=== PATIENT | male | born 1980 | race Caucasian/White ===

== ENCOUNTER 2019-03-13 21:25 | Emergency (ER) | payer OTHER ==
[2019-03-13 21:44] VITALS: BP 138/85
[2019-03-13] MEDS ORDERED: Cephalexin CAP* 500 MG PO ONE (22:24)
--- NOTE | 2019-03-13 22:32 | ED ---
Skin Complaint - HPI Summary HPI Summary: pt complains of not feeling well. he states he had diarrhea after he ate dinner at 8pm. no one else got sick. he also noted an area of redness to his left lateral axilla. it is tender to palpation. he did state that he had a low grade fever at approx 5pm but he did not take any meds for this. - History of Current Complaint Chief Complaint: UCGeneralIllness Stated Complaint: TICK BITE Hx Obtained From: Patient Onset/Duration: Started Hours Ago Pain Intensity: 7 - Allergy/Home Medications Allergies/Adverse Reactions: Allergies Allergy/AdvReac Type Severity Reaction Status Date / Time budesonide Allergy Swelling Verified 03/13/19 21:45 [From Rhinocort Allergy] Of Face,Lips,& Throat erythromycin base Allergy Unknown Verified 03/13/19 21:45 Reaction Details PMH/Surg Hx/FS Hx/Imm Hx Previously Healthy: Yes Endocrine/Hematology History: Denies: Hx Anticoagulant Therapy, Hx Diabetes, Hx Thyroid Disease Cardiovascular History: Denies: Hx Congestive Heart Failure, Hx Deep Vein Thrombosis, Hx Hypertension , Hx Myocardial Infarction, Hx Pacemaker/ICD Respiratory History: Denies: Hx Asthma, Hx Chronic Obstructive Pulmonary Disease (COPD), Hx Lung Cancer, Hx Pneumonia, Hx Pulmonary Embolism GI History: Denies: Hx Gall Bladder Disease, Hx Gastrointestinal Bleed, Hx Ulcer, Hx Urosepsis History: Denies: Hx Kidney Stones, Hx Renal Disease Neurological History: Denies: Hx Dementia, Hx Migraine, Hx Seizures, Hx Transient Ischemic Attacks (TIA) Psychiatric History: Denies: Hx Anxiety, Hx Depression, Hx Schizophrenia, Hx Bipolar Disorder - Surgical History Surgery Procedure, Year, and Place: tubes in ears. polyps in nose Infectious Disease History: No Infectious Disease History: Denies: Hx Hepatitis, Hx Human Immunodeficiency Virus (HIV), Traveled Outside the [place] in Last 30 Days - Family History Known Family History: Positive: Cardiac Disease, Hypertension - Social History Alcohol Use: Rare Substance Use Type: Reports: None Smoking Status (MU): Never Smoked Tobacco Review of Systems Positive: Fever, Fatigue Eyes: Negative ENT: Negative Cardiovascular: Negative Respiratory: Negative Gastrointestinal: Negative Positive: Diarrhea. Negative: Abdominal Pain, Vomiting, Nausea Negative: burning, dysuria, hematuria Positive: Myalgia Positive: Rash. Negative: Bruising Negative: Headache Psychological: Normal All Other Systems Reviewed And Are Negative: No Physical Exam Triage Information Reviewed: Yes Vital Signs On Initial Exam: Initial Vitals Temp Pulse Resp BP Pulse Ox 100.7 F 109 18 138/85 97 03/13/19 21:36 03/13/19 21:36 03/13/19 21:36 03/13/19 21:36 03/13/19 21:36 Vital Signs Reviewed: Yes Appearance: Positive: Well-Appearing, No Pain Distress, Well-Nourished Skin: Positive: Warm, Dry, Other - he has an area approx 3x3cm to the left lateral axilla. no induration. no evidence of abscess. Eyes: Positive: Normal, EOMI, LUL ENT: Positive: Hearing grossly normal Neck: Positive: Supple, Nontender Cardiovascular: Positive: Normal, RRR Abdomen Description: Positive: Nontender, Soft Bowel Sounds: Positive: Present Musculoskeletal: Positive: Normal, Strength/ROM Intact Neurological: Positive: Normal, Sensory/Motor Intact, Alert, Oriented to Person Place, Time, CN Intact II-III Psychiatric: Positive: Normal AVPU Assessment: Alert Diagnostics - Vital Signs Vital Signs Temp Pulse Resp BP Pulse Ox 03/13/19 21:36 100.7 F 109 18 138/85 97 - Laboratory Lab Statement: Any lab studies that have been ordered have been reviewed, and results considered in the medical decision making process. Course/Dx - Course Course Of Treatment: pt has a cellulitis to his left lateral axilla. he was given keflex for his infection. he was miimally tachy and febrile. pt also given tylenol and motrin. pt encouraged to f/u with [facility]. - Diagnoses Provider Diagnoses: Cellulitis Discharge - Sign-Out/Discharge Documenting (check all that apply): Patient Departure All imaging exams completed and their final reports reviewed: No Studies - Discharge Plan Condition: Stable Disposition: HOME Prescriptions: Cephalexin CAP* [Keflex CAP*] 500 mg PO TID #21 cap Patient Education Materials: Cellulitis (DC) Referrals: No Primary Care Phys,NOPCP [Primary Care Provider] - [facility] [Provider Group] Additional Instructions: take the keflex as instructed for your skin infection. return if worse or any new symptoms. Take tylenol and motrin for pain. it is important to follow up with your primary care physician. - Billing Disposition and Condition Condition: STABLE Disposition: Home
[2019-03-13] MEDS ORDERED: Acetaminophen TAB* 325 MG PO ONE (22:35)
[2019-03-13] MEDS ORDERED: Ibuprofen TAB* 600 MG PO ONE (22:35)
== END 2019-03-13 22:37 | disposition home or self-care (01) ==
LOC: UCCORT 21:25
DX: L03.112 Cellulitis of left axilla (principal)
CPT/HCPCS: 99212; A9270-GY; G0463